=== PATIENT | male | born 2000 | race Caucasian/White ===

== ENCOUNTER 2022-06-21 16:25 | Emergency (ER) | payer OTHER, SELFPAY ==
--- NOTE | ~2022-06-21 | US_ITS ---
EXAMINATION: US SCROTUM CLINICAL INFORMATION: Right-sided testicular pain. COMPARISON: None. TECHNIQUE: A sonogram of the scrotum was performed assessing rangel-scale appearance and color Doppler flow. Spectral Doppler analysis of the arterial and venous flow were performed in the testes bilaterally. FINDINGS: RIGHT: Right testicle measures 4.7 x 2.2 x 2.9 cm, volume 16 mL. No focal testicular parenchymal lesions are visualized. Spectral Doppler analysis of the arterial and venous flow is normal in the right testis. Right epididymal head is normal in size. No right hydrocele is seen. Small varicocele. Right epididymal Doppler flow is normal. LEFT: Left testicle measures 4.8 x 2 x 2.3 cm, volume 12 mL. No focal testicular parenchymal lesions are visualized. Spectral Doppler analysis of the arterial and venous flow is normal in the left testis. Left epididymal head is normal in size. No left hydrocele is seen. Small varicocele. Left epididymal Doppler flow is normal. US/US scrotum doppler IMPRESSION: 1. Small bilateral varicoceles. 2. No evidence of testicular torsion at the moment of this examination. 3. No intratesticular mass.
--- NOTE | ~2022-06-21 | CT_ITS ---
EXAMINATION: CT ABDOMEN AND PELVIS WITHOUT CONTRAST CLINICAL INFORMATION: Right inguinal tenderness COMPARISON: None TECHNIQUE: Multidetector volumetric imaging was performed from the superior aspect of the liver through the pubic symphysis. Sagittal and coronal reformatted images were obtained on the technologist's workstation. This CT examination was performed using dose optimization techniques as appropriate, variously including the following: *Automated exposure control *Adjustment of mA and/or kV according to patient size (this includes techniques or standardized protocols for targeted exams where dose is matched to indication/reason for exam; i.e. extremities or head) *Use of iterative reconstruction technique DLP: 558 mGy-cm FINDINGS: LUNG BASES: The visualized lung bases are unremarkable. LIVER, GALLBLADDER, AND BILIARY TREE: The liver is enlarged measuring 19.5 cm in cephalocaudad dimension with normal attenuation. No focal hepatic lesion or biliary ductal dilatation is present. The gallbladder is unremarkable with no evidence of radiopaque gallstones, gallbladder wall thickening, or obvious pericholecystic inflammatory changes. PANCREAS: Unremarkable. SPLEEN: Spleen is enlarged measuring 13.8 cm in greatest dimension ADRENAL GLANDS: Unremarkable. KIDNEYS AND URETERS: The kidneys are normal in size, shape, and attenuation. No hydronephrosis, hydroureter, or calculi seen. No perinephric stranding. BLADDER: Unremarkable. GASTROINTESTINAL TRACT: The small and large bowel are unremarkable. The appendix is unremarkable. ABDOMINAL WALL: No significant hernia is appreciated. LYMPH NODES: No retroperitoneal lymphadenopathy. VASCULAR: Unremarkable. PELVIC VISCERA: The prostate and seminal vesicles are unremarkable. OSSEOUS STRUCTURES: Unremarkable. CT/CT abdomen pelvis wo IV con IMPRESSION: 1. A cause for the patient's right inguinal tenderness is not found. 2. Incidental note made of mild hepatosplenomegaly. Fleischner guidelines were followed.
--- NOTE | ~2022-06-21 | US_ITS ---
EXAMINATION: US SCROTUM CLINICAL INFORMATION: Right-sided testicular pain. COMPARISON: None. TECHNIQUE: A sonogram of the scrotum was performed assessing rangel-scale appearance and color Doppler flow. Spectral Doppler analysis of the arterial and venous flow were performed in the testes bilaterally. FINDINGS: RIGHT: Right testicle measures 4.7 x 2.2 x 2.9 cm, volume 16 mL. No focal testicular parenchymal lesions are visualized. Spectral Doppler analysis of the arterial and venous flow is normal in the right testis. Right epididymal head is normal in size. No right hydrocele is seen. Small varicocele. Right epididymal Doppler flow is normal. LEFT: Left testicle measures 4.8 x 2 x 2.3 cm, volume 12 mL. No focal testicular parenchymal lesions are visualized. Spectral Doppler analysis of the arterial and venous flow is normal in the left testis. Left epididymal head is normal in size. No left hydrocele is seen. Small varicocele. Left epididymal Doppler flow is normal. US/US scrotum IMPRESSION: 1. Small bilateral varicoceles. 2. No evidence of testicular torsion at the moment of this examination. 3. No intratesticular mass.
[2022-06-21 16:27] VITALS: BP 104/57; PULSE 65; RESP 18; TEMP 36.7; O2SAT 99; BMI 23.7
--- NOTE | 2022-06-21 16:27 | ED.MALEGU ---
HPI - Male Genitourinary General Chief complaint: Urogenital-Male <CARLOS Yang - Last Filed: 06/21/22 16:32> Stated complaint: pain in groin area <CARLOS Yang - Last Filed: 06/21/22 16:32> Time Seen by Provider: 06/21/22 21:10 <CARLOS Yang - Last Filed: 06/21/22 16:32> Source: patient <Natalie Goddard MD - Last Filed: 06/21/22 22:34> Mode of arrival: ambulatory <Natalie Goddard MD - Last Filed: 06/21/22 22:34> Limitations: no limitations <Natalie Goddard MD - Last Filed: 06/21/22 22:34> History of Present Illness HPI Narrative: Patient comes to the emergency room complaining of right inguinal pain for the last 4 days. Patient states that the pain radiates into the testicle. Patient denies any dysuria, hematuria or penile discharge. No fever chills, no flank pain or abdominal pain. Patient reports that he has been doing some heavy lifting at work <Natalie Goddard MD - Last Filed: 06/21/22 22:34> Related Data Allergies/Adverse reactions: Allergies Allergy/AdvReac Type Severity Reaction Status Date / Time No Known Allergies Allergy Unverified 01/09/20 18:00 <CARLOS Yang - Last Filed: 06/21/22 16:32> Review of Systems Review of Systems: Constitutional : No Weight loss, No Fever, No Chills, No Night Sweats, No Fatigue, No Malaise ENT/Mouth : No Hearing loss, No Ear Pain, No Nasal Congestion, No Sinus Pain, No Hoarseness, No sore throat, No Rhinorrhea, No Swallowing Difficulty Eyes: No Eye Pain, No Swelling, No Redness, No Foreign Body, No Discharge, No Vision Changes Cardiovascular : No Chest Pain, No SOB, No Dyspnea on Exertion, No Orthopnea, No Edema, No Palpitations Respiratory : No Cough, No Sputum, No Wheezing, No Smoke Exposure, No Dyspnea Gastrointestinal : No Nausea, No Vomiting, No Diarrhea, No Constipation, No abdominal Pain, No Hematochezia, No Melena Genitourinary : Complaining of right inguinal pain radiating towards the right testicle,, No Dysuria, No Urinary Frequency, No Hematuria, No Urinary Incontinence, No Urgency, No Flank Pain, No Urinary Flow Changes, No Hesitancy Musculoskeletal : No joint pain, No Myalgias, No Joint Swelling Skin : No Skin Lesions, No rash Neuro : No Weakness, No Numbness, No Paresthesias, No Loss of Consciousness, No Dizziness, No Headache Psych : No Anxiety/Panic, No Depression, No SI/HI/AH/VH, No Social Issues, Heme/Lymph: No Bruising, No Bleeding,No Lymphadenopathy Endocrine : No Polyuria, No Polydipsia, No Temperature Intolerance <Natalie Goddard MD - Last Filed: 06/21/22 22:34> [facility] Social History Social History: Social History Advance Directives: No Advance Directives Information Provided: No <CARLOS Yang - Last Filed: 06/21/22 16:32> Physical Exam Vital Signs: Vital Signs: Last Vital Signs Temp 98.5 F 06/21/22 21:41 Pulse 59 06/21/22 21:41 Resp 20 06/21/22 21:41 BP 104/62 06/21/22 21:41 Pulse Ox 98 06/21/22 21:41 O2 Del Method 06/21/22 21:41 BMI result Body Mass Index 23.7 <CARLOS Yang - Last Filed: 06/21/22 16:32> Vital Signs: Last Vital Signs Temp 98.5 F 06/21/22 21:41 Pulse 59 06/21/22 21:41 Resp 20 06/21/22 21:41 BP 104/62 06/21/22 21:41 Pulse Ox 98 06/21/22 21:41 O2 Del Method 06/21/22 21:41 BMI result Body Mass Index 23.7 <Natalie Goddard MD - Last Filed: 06/21/22 22:34> Const: Other: Appearance: Alert. Oriented X3. No acute distress. Eyes: Pupils equal, round and reactive to light. ENT: Pharynx normal. Neck: Normal inspection. Neck supple. No lymph nodes noted. No crepitus CVS: Normal heart rate and rhythm. Pulses normal. Normal S1 and S2 Respiratory: No respiratory distress. Breath sounds normal. No Wheezing. No rales Abdomen: Soft and nontender. No rigidity. No distention. Skin: Skin warm and dry. Normal skin color. Normal skin turgor. Extremities: No lower extremity edema. No Lacerations. No Rash Neuro: Oriented X 3. No motor deficit. No sensory deficit. Moving all extremities. No slurred speech. CN 2 through 12 grossly intact Psych: calm, cooperative, normal affect <Natalie Goddard MD - Last Filed: 06/21/22 22:34> Course Course Course Narrative: RME--22-year-old male with no significant past medical history presents to the ED complaining of right testicular pain x4 days. Denies injury, trauma/fall, dysuria, hematuria, abd pain, N/V. Does report heavy lifting prior to incident area not examined in triage UA, CTNG & Scrotal US ordered <CARLOS Yang - Last Filed: 06/21/22 16:32> Medical Decision Making Medical Decision Making [facility] Narrative: -patient's urine is negative for UTI, CT angio pending. -ultrasound of the scrotum so shows mild bilateral varicocele. Patient instructed to follow-up with urology, as this condition may cause low sperm production -pelvic CT scan does not show any acute findings -patient likely has pulled inguinal ligament -patient received 1 dose of p.o. ibuprofen. <Natalie Goddard MD - Last Filed: 06/21/22 22:34> Differential Diagnosis Differential Diagnoses: The differential diagnosis associated with the presentation includes (Inguinal hernia, UTI, testicular torsion, epididymitis) <Natalie Goddard MD - Last Filed: 06/21/22 22:34> Lab Data [facility] Lab Attestation statement: I reviewed the patient's lab results. <Natalie Goddard MD - Last Filed: 06/21/22 22:34> Labs: Lab Results 06/21/22 06/21/22 Range/Units 17:52 17:52 Urine Color Yellow Urine Appearance Clear Urine pH 7.0 (5.0-9.0) Ur Specific Baring 1.020 (1.005-1.025) Urine Protein Negative (Neg-Trace) mg/dL Urine Glucose (UA) Negative (Negative) mg/dL Urine Ketones Negative (Negative) mg/dL Urine Blood Negative (Negative) Urine Nitrite Negative (Negative) Ur Leukocyte Esterase Negative (Negative) Chlam trachomat DNA PCR NOT DETECTED (Not Detect.) N.gonorrhoeae DNA (PCR) NOT DETECTED (Not Detect.) <CARLOS Yang - Last Filed: 06/21/22 16:32> Lab Results 06/21/22 06/21/22 Range/Units 17:52 17:52 Urine Color Yellow Urine Appearance Clear Urine pH 7.0 (5.0-9.0) Ur Specific Baring 1.020 (1.005-1.025) Urine Protein Negative (Neg-Trace) mg/dL Urine Glucose (UA) Negative (Negative) mg/dL Urine Ketones Negative (Negative) mg/dL Urine Blood Negative (Negative) Urine Nitrite Negative (Negative) Ur Leukocyte Esterase Negative (Negative) Chlam trachomat DNA PCR NOT DETECTED (Not Detect.) N.gonorrhoeae DNA (PCR) NOT DETECTED (Not Detect.) <Natalie Goddard MD - Last Filed: 06/21/22 22:34> Radiology Impression Discussion of test interpretation with radiology: I have reviewed the radiologist's reading. <Natalie Goddard MD - Last Filed: 06/21/22 22:34> Radiologist Impression: Scrotum ultrasound: RIGHT: Right testicle measures 4.7 x 2.2 x 2.9 cm, volume 16 mL. No focal testicular parenchymal lesions are visualized. Spectral Doppler analysis of the arterial and venous flow is normal in the right testis. Right epididymal head is normal in size. No right hydrocele is seen. Small varicocele. Right epididymal Doppler flow is normal. LEFT: Left testicle measures 4.8 x 2 x 2.3 cm, volume 12 mL. No focal testicular parenchymal lesions are visualized. Spectral Doppler analysis of the arterial and venous flow is normal in the left testis. Left epididymal head is normal in size. No left hydrocele is seen. Small varicocele. Left epididymal Doppler flow is normal. US/US scrotum IMPRESSION: 1.? Small bilateral varicoceles. 2.? No evidence of testicular torsion at the moment of this examination. 3.? No intratesticular mass. ? Abdomen pelvis CT scan: FINDINGS: LUNG BASES: The visualized lung bases are unremarkable.? LIVER, GALLBLADDER, AND BILIARY TREE: The liver is enlarged measuring 19.5 cm in cephalocaudad dimension with normal attenuation. No focal hepatic lesion or biliary ductal dilatation is present. The gallbladder is unremarkable with no evidence of radiopaque gallstones, gallbladder wall thickening, or obvious pericholecystic inflammatory changes.? PANCREAS: Unremarkable.? SPLEEN: Spleen is enlarged measuring 13.8 cm in greatest dimension? ADRENAL GLANDS: Unremarkable.? KIDNEYS AND URETERS: The kidneys are normal in size, shape, and attenuation. No hydronephrosis, hydroureter, or calculi seen. No perinephric stranding. ? BLADDER: Unremarkable.? GASTROINTESTINAL TRACT: The small and large bowel are unremarkable. The appendix is unremarkable.? ABDOMINAL WALL: No significant hernia is appreciated.? LYMPH NODES: No retroperitoneal lymphadenopathy. VASCULAR: Unremarkable. PELVIC VISCERA: The prostate and seminal vesicles are unremarkable.? OSSEOUS STRUCTURES: Unremarkable.? CT/CT abdomen pelvis wo IV con IMPRESSION: 1.? A cause for the patient's right inguinal tenderness is not found. 2.? Incidental note made of mild hepatosplenomegaly. ? Fleischner guidelines were followed. <Natalie Goddard MD - Last Filed: 06/21/22 22:34> Discharge Plan Discharge Clinical Impression: Inguinal pain, Bilateral varicoceles <CARLOS Yang - Last Filed: 06/21/22 16:32> Patient Disposition: Home, Self-Care <CARLOS Yang - Last Filed: 06/21/22 16:32> Instructions: Groin Pain (ED), Varicocele (ED) <CARLOS Yang - Last Filed: 06/21/22 16:32> Additional Instructions: Please follow-up with your primary care physician tomorrow. If you have any worsening or new symptoms, please return to the emergency room or call 911 <CARLOS Yang - Last Filed: 06/21/22 16:32> Referrals: Tyree Jimenez MD [Physician] - 1 week <CARLOS Yang - Last Filed: 06/21/22 16:32>
[2022-06-21 18:03] LABS: Appearance Urine Clear; Color Urine Yellow; Glucose Urine UA Negative (Negative); Leukocyte Esterase Urine Negative (Negative); Nitrite Urine Negative (Negative); Urine Blood Negative (Negative); Urine Ketones Negative (Negative); Urine Protein Negative (Neg-Trace)
[2022-06-21 19:41] LABS: CT PCR NOT DETECTED (Not Detect.); NG PCR NOT DETECTED (Not Detect.)
[2022-06-21 21:41] VITALS: BP 104/62; PULSE 59; RESP 20; TEMP 36.9; O2SAT 98
[2022-06-21] MEDS: Ibuprofen 600 MG TABLET PO (22:57)
== END 2022-06-22 02:06 | disposition home or self-care (01) ==
PROVIDERS: Physician Assistant; Emergency Provider Emergency Medicine
DX: I86.1 Scrotal varices (principal); R10.2 Pelvic and perineal pain; Z79.899 Other long term (current) drug therapy
CPT/HCPCS: 0353U; 74176; 76870; 81003; 93975; 99283; 99284

== ENCOUNTER → 2022-07-13 08:28 | Outpatient (BNVA) | payer OTHER, SELFPAY | PROVIDERS: PCP Pediatrics; Visit Provider Nurse Practitioner Family | DX: R10.30 Lower abdominal pain, unspecified (principal) | CPT/HCPCS: 99202 ==

== ENCOUNTER 2022-12-09 15:39 | Outpatient (AMB) | payer OTHER, SELFPAY ==
[2022-12-09 15:47] VITALS: BP 122/70; PULSE 74; TEMP 36.9; O2SAT 98; BMI 26.1
--- NOTE | 2022-12-09 15:47 | AM.OFFWIN_ITS ---
Intake Vital Signs 12/09/22 15:47 Height 6 ft 1 in Weight 198 lb BMI 26.1 BP 122/70 Blood Pressure Location Lt brachial Position Sitting Pulse 74 Pulse Source Pulse Oximeter Temp 98.5 F Temp Source Temporal Artery Scan Pulse Oximetry (%) 98 Intake Visit Reasons: EP, cough Intake Note: pt is here c/o cough, sneezing, pt requesting note off work for the last 3 days Patient Tobacco Use Status: Never used Tobacco Allergies No Known Allergies Allergy (Verified 12/09/22 15:50) HPI HPI Comments History of Present Illness Details This is a 22-year-old male who presents to the office today for sick visit. Patient complaining of dry cough, congestion/rhinorrhea, sore throat, and fatigue. Patient states the symptoms have been ongoing for 3 days but they have been improving. He presented to the office today requesting a note for work saying that he can return to work tomorrow. Patient currently reports feeling well without chest pain, shortness of breath, abdominal pain, nausea/vomiting/diarrhea, or fever/chills. [facility] Medical History Deep inguinal pain Surgical History No pertinent past surgical history Family History (Updated 09/22/22 @ 08:46 by CRAIG Vale) Mother No problems noted. Father No problems noted. Social History Housing: House Patient Tobacco Use Status: Never used Tobacco service: No Current occupational status: employed Cognitive needs: No Hearing needs: No Vision needs: No Review of Systems Const All systems reviewed & are unremarkable except as noted in HPI and below Reports no additional complaints Eyes Reports no additional complaints ENT Reports no additional complaints Card Reports no additional complaints Resp Reports no additional complaints GI Reports no additional complaints Reports no additional complaints Musc Reports no additional complaints Skin/Breast Reports system reviewed and no additional complaints, except as documented Neuro Reports no additional complaints Psych Reports no additional complaints Endo Reports no additional complaints Byron/Lymph Reports no additional complaints Aller/Immun Reports no additional complaints Physical Exam Vital Signs: Last Vital Signs Temp 98.5 F 12/09/22 15:47 Pulse 74 12/09/22 15:47 BP 122/70 08/18/23 15:47 Pulse Ox 98 12/09/22 15:47 BMI result Body Mass Index 26.1 Const General: cooperative, healthy appearing, no acute distress and well developed Orientation/consciousness: patient oriented x3 HEENT Head: Yes normal to inspection Ears: hearing grossly normal bilaterally General nose exam: Normal external nose present Face and sinus: Yes normal facial exam Mouth: Normal oral and palatal mucosa present Throat: Yes posterior oropharynx abnormal (Erythematous, no exudates.) Eyes General: appearance normal, both eyes and all related structures Pupils: Equal, round and reactive pupils present EOM: EOMs intact bilaterally Resp Effort & Inspection: normal respiratory effort and no respiratory distress Auscultation: clear to auscultation bilaterally Cardio Rate: regular rate Rhythm: regular rhythm Heart sounds: no gallops, no murmurs and no rubs Peripheral pulses: Peripheral pulses 2+ throughout GI Inspection: No distended Palpation (GI): Soft to palpation and nontender Auscultation: normal bowel sounds Skin General skin exam: no rashes or lesions noted Neuro General: patient oriented x3 Cranial nerves: Yes CN's II-XII intact bilaterally and Yes Equal, round and reactive pupils present Gait exam (Neuro): Normal gait present Motor exam (neuro): 5/5 motor strength present throughout Extrem General: Yes normal to inspection, Yes full ROM and Yes no clubbing, cyanosis or edema Psych Appearance: grossly normal Mental Status: mental status grossly normal Assessment & Plan Assessment & Plan (1) Viral URI with cough: Code(s): J06.9 - Acute upper respiratory infection, unspecified Plan: Patient presenting with signs and symptoms most consistent with acute upper respiratory tract infection. Recommended symptomatic management including rest, increased fluids, advil/tylenol for pain/fever, and over the counter throat lozenges/decongestants. COVID/flu/RSV test sent. Otherwise, patient is able to return to work without restrictions tomorrow. His vital signs are stable and his physical exam is benign. Recommended precautions including gloves, washing hands, covering mouth when he coughs or sneezes. Patient advised to follow up here or go to the emergency room for worsening/persistent symptoms. Patient verbalizes understanding and he is agreeable with the plan. Orders: Orders SARS-CoV2/FLU/RSV Today R05.9 - Cough, unspecified Coding Level of Care Code Est Pt Level 3 (06655) Diagnoses Viral URI with cough J06.9
== END 2022-12-09 16:10 | disposition home or self-care (01) ==
PROVIDERS: PCP Nurse Practitioner Family; Visit Provider Physician Assistant Medical
DX: J06.9 Acute upper respiratory infection, unspecified (principal)
CPT/HCPCS: 99213

== ENCOUNTER 2022-12-10 11:22 | Outpatient (REF) | payer OTHER, SELFPAY ==
[2022-12-10 12:10] LABS: Influenza A PCR NEGATIVE (Negative); Influenza B PCR NEGATIVE (Negative); Resp Syncy Virus RNA Qual PCR NEGATIVE (Negative); SARS COV2 PCR INHOUSE NEGATIVE (Negative)
== END 2022-12-10 11:23 | disposition home or self-care (01) ==
LOC: HO.LNP 11:22
PROVIDERS: Visit Provider Physician Assistant Medical
DX: R05.9 Cough, unspecified (principal)
CPT/HCPCS: 0241U

== ENCOUNTER 2023-06-16 14:14 | Outpatient (AMB) | payer OTHER, SELFPAY ==
[2023-06-16 14:24] VITALS: BP 110/64; PULSE 97; O2SAT 99; BMI 29.5
--- NOTE | 2023-06-16 14:24 | A.OFFPC_ITS ---
Vital Signs 06/16/23 14:24 Height 6 ft 1 in Weight 223 lb 8 oz BMI 29.5 BP 110/64 Blood Pressure Location Lt brachial Position Sitting Pulse 97 Pulse Source Pulse Oximeter Pulse Oximetry (%) 99 Oxygen Delivery Method Room Air Intake Visit Reasons: Est Care/Transfer from [facility] Note: Pt is here to est care Allergies No Known Allergies Allergy (Verified 06/16/23 14:34) Medication List - Last Reconciled 06/16/23 by CRAIG Velasco No Known Home Meds Tobacco use date assessed: 06/16/23 Dental Screening Dental Screen Date: 06/16/23 Did you have a dental visit in the last 12 months?: Yes Did you have a dental problem in the last 6 months where you did not have access to dental care?: No Was dental information given to patient?: Patient has dentist HPI HPI Comments History of Present Illness Details Patient is a 23-year-old male here to establish care. He has a past medical history significant for anxiety and ADHD. He was referred to Psychiatry for ADHD evaluation, and was given referral to therapy for anxiety. The patient is arrives today and states that he has not yet made those appointment, but definitely is interested in therapy for his depression, in for evaluation for his ADHD. The patient denies SI/HI Patient has had his influenza booster this year. Will get COVID booster. [facility] Medical History Deep inguinal pain Surgical History No pertinent past surgical history Family History Mother Type 2 diabetes mellitus Father No problems noted. Maternal Grandfather Mental health disorder Social History Housing: House Patient Tobacco Use Status: Never used Tobacco e-Cigarette/Vaping Use: Never Used Second Hand Smoke Exposure: No service: No Current occupational status: employed Cognitive needs: No Hearing needs: No Vision needs: No Questionnaire PHQ-9 Over the last 2 weeks, how often have you been bothered by any of the following problems? 1. Little interest or pleasure in doing things: several days 2. Feeling down, depressed, or hopeless: more than half the days 3. Trouble falling or staying asleep, or sleeping too much: more than half the days 4. Feeling tired or having little energy: more than half the days 5. Poor appetite or overeating: not at all 6. Feeling bad about yourself - or that you are a failure or have let yourself or your family down: more than half the days 7. Trouble concentrating on things, such as reading the newspaper or watching television: more than half the days 8. Moving or speaking so slowly that other people could have noticed. Or the opposite - being so fidgety or restless that you have been moving around a lot more than usual: more than half the days 9. Thoughts that you would be better off or of hurting yourself in some way: not at all Total score: 13 Depression Screening Interpretation: Positive Depression Screening Done: Yes Source: Developed by Drs. David Bartlett, Farida Boston, Enoch Vaz and colleagues, with an educational medhat from [employer]. Thrive Questionnaire Date Thrive assessed: 06/16/23 I am a: Patient What is your living situation today?: I have a steady place to live Within the past 12 months, did the food you bought not last and you didn't have the money to get more?: Never true Within the past 12 months, did you worry whether your food would run out before you got money to buy more?: Never true Do you have trouble paying for medicines?: No Do you have trouble getting transportation to medical appointments?: No Do you have trouble paying your heating and electricity bill?: No Do you have trouble taking care of your child, family member or friend?: No Do you have trouble with day-to-day activities such as bathing, preparing meals, shopping, managing finances, etc.?: No Are you currently unemployed and looking for a job?: Yes Are you interested in more education?: Yes THRIVE Score: 0 AUDIT C Alcohol Use Questionnaire (AUDIT-C) 1. How often do you have a drink containing alcohol?: Monthly or less 2. How many drinks containing alcohol do you have on a typical day when you are drinking?: 1 or 2 3. How often do you have six or more drinks on one occasion?: Never Total Score: 1 DAHIANA-7 AMB Questionnaire DAHIANA-7 Date DAHIANA - 7 assessed: 06/16/23 Feeling nervous, anxious, or on edge: 1 = Several days Not being able to stop or control worryin = Several days Worrying too much about different things: 1 = Several days Trouble relaxin = Not at all Being so restless that it is hard to sit still: 1 = Several days Becoming easily annoyed or irritable: 1 = Several days Feeling afraid as if something awful might happen: 0 = Not at all Total DAHIANA-7 score (0-4 normal; 5-9 mild; 10-14 moderate; 15-21 severe): 5 Source: Developed by Drs. David Bartlett, Farida Boston, Enoch Vaz and colleagues, with an educational medhat from [employer]. DAHIANA-7 Assessment Billing DAHIANA-7 Assessment Tool: DAHIANA-7 Assessment 20206 Review of Systems Const Details: Constitutional : No Weight loss, No Fever, No Chills, No Fatigue, No Malaise Cardiovascular : No Chest Pain, No SOB, No Dyspnea on Exertion, No Orthopnea, No Edema, No Palpitations Respiratory : No Cough, No Sputum, No Wheezing Gastrointestinal : No Nausea, No Vomiting, No Diarrhea, No Constipation, Admits ocassion flank/abdomnial pain, No Hematochezia, No Melena Genitourinary : No Dysuria, No Urinary Frequency, No Hematuria,No scotal pain. Musculoskeletal : No joint pain, No Myalgias, No Joint Swelling Neuro : No Weakness, No Numbness, No Dizziness, No Headache Psych : No Anxiety/Panic, Admits Depression Heme/Lymph: No Bruising, No Bleeding,No Lymphadenopathy All other systems reviewed and are negative Physical exam (Primary Care) Care Plan Goal for BP management: Vital signs reviewed are stable. Tobacco/Smoking Status: Tobacco use Status Tobacco use date assessed 09/22/22 09/22/22 08:36 Patient Tobacco Use Status Never used Tobacco 12/09/22 15:53 Depression Screening Interpretation: Positive Thrive Assessment: Date of Thrive Assessment Date Thrive assessed 09/22/22 09/22/22 08:36 Const Other: Appearance: Alert.? Oriented X3.? No acute distress.? Head: Normocephalic, atraumatic. Neck: Normal inspection.? Neck supple.? CVS: Normal heart rate and rhythm.? Pulses normal.? Respiratory: No respiratory distress.? Breath sounds normal.? Abdomen: Soft and nontender.? Skin: Skin warm and dry.? Normal skin color.? Normal skin turgor.? Back: No midline tenderness, no C-spine tenderness, full range of motion, no CVA tenderness bilaterally Neuro: Oriented X 3.? No motor deficit.? No sensory deficit. CN 2-12 intact Assessment and Plan Assessment & Plan (1) ADHD (attention deficit hyperactivity disorder) evaluation: Comment: Patient is meeting with in office community navigator to establish testing for ADHD, and establishment with a psychiatry provider. Code(s): Z13.39 - Encounter for screening examination for other mental health and beh avioral disorders (2) Depression: Comment: Patient denies SI HI. Patient meeting with community navigator to help establish therapist. Patient has been educated on signs of worsening symptoms when to return to the office or to present to the ED. Code(s): F32.A - Depression, unspecified Qualifiers: Depression Type: other depression Qualified Code(s): F32.89 - Other specified depressive episodes (3) Abdominal pain: Comment: Patient states that he has occasional abdominal pain, but that it can interrupt his sleep. Patient has history of varicocele of the scrotum, he saw Urology 1 year prior was given Mobic with good effect. Will repeat ultrasound of scrotum and abdomen. Will refer to Urology if indicated. Will also give omeprazole due to distension and reflux symptoms in the morning. Code(s): R10.9 - Unspecified abdominal pain Qualifiers: Abdominal location: unspecified location Qualified Code(s): R10.9 - Unspecified abdominal pain Plan: Take your medications as prescribed. If you were prescribed antibiotics today, it is important that you take your medication to their entirety, do not skip any doses, do not finish them early. Follow-up with your primary care provider this week. Return to the emergency department with new or worsening symptoms. Such as fevers, chills, chest pain, shortness of breath, nausea, vomiting, dizziness, headache, vision changes, lethargy In case of emergency call 911 Plan Patient will follow-up in 2-3 months with physical exam Orders: Orders Complete Blood Count Auto Diff 09/22/22 F32.A - Depression, unspecified Comprehensive Met. Panel Today Z91.89 - Other specified personal risk factors, not elsewhere classified Complete Blood Count Auto Diff Today Z13.0 - Encounter for screening for diseases of the blood and blood-forming organs and certain disorders involving the immune mechanism Vitamin D 25-OH (D2 and D3) Today Z13.21 - Encounter for screening for nutritional disorder Lipase Today R10.9 - Unspecified abdominal pain Vitamin B6 Today Z13.21 - Encounter for screening for nutritional disorder Vitamin B12 Today Z13.21 - Encounter for screening for nutritional disorder UA CC w/rflx Micro + Cult Today Z13.89 - Encounter for screening for other disorder TSH reflex Free T4 Today Z13.29 - Encounter for screening for other suspected endocrine disorder Amylase Today R10.9 - Unspecified abdominal pain Medications: New meloxicam 15 mg PO DAILY PRN 30 tabs 0RF pain, moderate omeprazole 20 mg PO DAILY 90 caps 0RF Coding Level of Care Code Est Pt Level 3 (26748) Diagnoses ADHD (attention deficit hyperactivity disorder) evaluation Z13.39 Other depression F32.89 Depression Type: other depression Abdominal pain, unspecified abdominal location R10.9 Abdominal location: unspecified location Additional Codes DAHIANA-7 Assessment Billing - DAHIANA-7 Assessment Tool: DAHIANA-7 Assessment [id number] ([id number]) Time Spent (min) 35
== END 2023-06-16 16:19 | disposition home or self-care (01) ==
PROVIDERS: PCP Nurse Practitioner Family; Visit Provider Nurse Practitioner Primary Care
DX: R10.9 Unspecified abdominal pain (principal); Z13.39 Encounter for screening examination for other mental health and behavioral disorders; F32.89 Other specified depressive episodes
CPT/HCPCS: 96127; 99214

== ENCOUNTER 2023-07-03 14:56 | Outpatient (REF) | payer OTHER, SELFPAY ==
--- NOTE | ~2023-07-03 | US_ITS ---
EXAMINATION: US SCROTUM CLINICAL INFORMATION: Scrotal varices. COMPARISON: Ultrasound scrotum 06/21/2022. TECHNIQUE: A sonogram of the scrotum was performed assessing rangel-scale appearance and color Doppler flow. Spectral Doppler analysis of the arterial and venous flow were performed in the testes bilaterally. FINDINGS: RIGHT: Right testicle measures 4.3 x 2.1 x 3.0 cm, volume 14.2 mL. Focal area of heterogeneity in the periphery of the testicular parenchyma measuring approximately up to 1.5 cm with some cystic changes. Spectral Doppler analysis of the arterial and venous flow is normal in the right testis. Right epididymal head is normal in size. No right hydrocele or varicocele is seen. Right epididymal Doppler flow is normal. LEFT: Left testicle measures 4.7 x 2.2 x 2.9 cm, volume 16.0 mL. No focal testicular parenchymal lesions are visualized. Spectral Doppler analysis of the arterial and venous flow is normal in the left testis. Left epididymal head is normal in size. Small varicocele and hydrocele. Left epididymal Doppler flow is normal. US/US scrotum IMPRESSION: 1. Focal heterogeneity in the periphery of the right testicular parenchyma that could potentially represent tubular ectasia of the rete testis, although demonstrates suggestion of internal vascularity which would be atypical. Recommend short-term follow-up ultrasound or further characterization with scrotal MRI with and without IV contrast. 2. Small left-sided varicocele and hydrocele.
--- NOTE | ~2023-07-03 | US_ITS ---
EXAMINATION: US RETROPERITONEAL LIMITED (RENAL ONLY) CLINICAL INFORMATION: Unspecified abdominal pain. COMPARISON: CT abdomen and pelvis 06/21/2022. TECHNIQUE: Real-time imaging of the kidneys. FINDINGS: RIGHT KIDNEY: 9.7 x 3.6 x 5.0 cm (SAG x AP x TRV). The kidney is normal in size, contour, and echogenicity. Renal cortical thickness is normal. No calculi or focal parenchymal lesions. No hydronephrosis. LEFT KIDNEY: 10.5 x 5.3 x 5.3 cm (SAG x AP x TRV). The kidney is normal in size, contour, and echogenicity. Renal cortical thickness is normal. No calculi or focal parenchymal lesions. No hydronephrosis. US/US renal BI IMPRESSION: No abnormality is seen..
== END 2023-07-03 14:57 | disposition home or self-care (01) ==
LOC: HO.US 14:56
PROVIDERS: PCP Nurse Practitioner Primary Care; Visit Provider Nurse Practitioner Primary Care
DX: R10.9 Unspecified abdominal pain (principal); I86.1 Scrotal varices
CPT/HCPCS: 76775; 76870

== ENCOUNTER 2023-07-13 13:55 | Outpatient (REF) | payer OTHER, SELFPAY ==
[2023-07-13 16:03] LABS: MANUAL DIFF FLAG NO
[2023-07-13 16:16] LABS: Basophils Absolute Auto 0.1 X10*3/uL (0.0-0.2); Basophils Percent Auto 0.9 % (0-2); Eosinophils Absolute Auto 0.4 X10*3/uL (0.0-0.4); Eosinophils Percent Auto 4.9 % (0-4); Hematocrit 44.2 % (42.0-52.0); Hemoglobin 15.2 g/dl (14.0-18.0); Imm Gran Abs Auto 0.03 X10*3/uL (0.00-0.03); Imm Gran Pct Auto 0.4 % (0.0-0.4); Lymphocytes Absolute Auto 2.3 X10*3/uL (1.2-4.9); Mean Corpuscular HGB Conc 34.4 g/dl (31.0-36.0); Mean Corpuscular Hemoglobin 29.2 pg (27.0-33.0); Mean Corpuscular Volume 84.8 fL (80.0-98.0); Mean Platelet Volume 10.1 fL (9.4-12.4); Monocytes Absolute Auto 0.6 X10*3/uL (0.1-1.2); Neutrophils Absolute Auto 4.5 x10*3/uL (2.0-8.3); Neutrophils Percent Auto 57.8 % (45-73); Platelet Count 227 X10*3/uL (160-400); Red Blood Count 5.21 X10*6/uL (4.60-5.80); Red Cell Distribution Width 11.9 % (11.0-16.0); White Blood Count 7.8 X10*3/uL (4.8-10.8)
[2023-07-13 16:29] LABS: Alanine Aminotransferase 23 U/L (0-40); Albumin Level 4.6 g/dL (3.5-5.0); Alkaline Phosphatase 57 U/L (39-117); Amylase 45 U/L (28-100); Anion Gap 14 (12-20); Aspartate Amino Transferase 18 U/L (5-37); Bilirubin Total 0.5 mg/dL (0.0-1.0); Blood Urea Nitrogen 13 mg/dL (9-16); Calcium 9.9 mg/dL (8.4-10.2); Carbon Dioxide 29 mmol/L (22-29); Chloride 104 mmol/L (96-108); Estimated Glomerular Filt Rate > 60; Glucose Random 91 mg/dL (60-115); Lipase 15 U/L (8-78); Potassium 4.6 mmol/L (3.3-5.1); Sodium 142 mmol/L (135-145); Total Protein 7.6 g/dL (6.5-8.0)
[2023-07-13 16:38] LABS: Appearance Urine Clear; Color Urine Yellow; Glucose Urine UA Negative (Negative); Leukocyte Esterase Urine Negative (Negative); Nitrite Urine Negative (Negative); Urine Blood Negative (Negative); Urine Ketones Negative (Negative); Urine Protein Negative (Neg-Trace)
[2023-07-13 16:47] LABS: TSH reflex Free T4 4.03 uIU/mL (0.32-4.0)
[2023-07-13 16:50] LABS: Vitamin B12 595 pg/mL (200-900)
[2023-07-13 17:26] LABS: Free T4 (Free Thyroxine) 0.97 ng/dL (0.71-1.85)
[2023-07-18 13:27] LABS: Vitamin D 25-OH, D2 <4 ng/mL; Vitamin D 25-OH, D3 25 ng/mL; Vitamin D 25-OH, Total 25 ng/mL (30-100)
[2023-07-18 14:54] LABS: Vitamin B6 60.2 ng/mL (2.1-21.7)
== END 2023-07-13 13:56 | disposition home or self-care (01) ==
LOC: HO.HMGCLDS 13:55
PROVIDERS: PCP Nurse Practitioner Primary Care; Visit Provider Nurse Practitioner Primary Care
DX: R10.9 Unspecified abdominal pain (principal); Z13.21 Encounter for screening for nutritional disorder; Z13.89 Encounter for screening for other disorder; Z13.0 Encounter for screening for diseases of the blood and blood-forming organs and certain disorders involving the immune mechanism; Z13.29 Encounter for screening for other suspected endocrine disorder; Z91.89 Other specified personal risk factors, not elsewhere classified
CPT/HCPCS: 36415; 80053; 81003; 82150; 82306; 82607; 83690; 84207; 84439; 84443; 85025

== ENCOUNTER 2023-08-15 13:52 | Outpatient (AMB) | payer OTHER, SELFPAY ==
--- NOTE | 2023-08-15 14:14 | MHC.OFFVIS ---
Intake Visit Reasons: abnormal scrotal imaging, varicocele, hydrocele Intake Note: Patient present for follow up bi varicoceles and hydrocele Urology Medications: none Blood Thinner: none Pbx Teacher Required: No Accompanied by: Self / Same As Patient Allergies No Known Allergies Allergy (Verified 08/15/23 17:34) Medication List - Last Reconciled 08/15/23 by RAY Valdes No Known Home Meds HPI Comments Details: Sunny is a pleasant 23-year-old male patient of Dr. Rivera. He has a past medical history of ADHD, depression, and anxiety. He presents to the office today for hydrocele and varicoceles. Of note, patient was seen approximately 1 year ago at which time recommendations were made for p.r.n. referral regarding scrotal and groin discomfort patient had been experiencing. In discussion with the patient today reports having followed up with his PCP for abdominal pain he had been experiencing at which time further imaging was ordered for further assessment evaluation. He reports PCP had ordered another scrotal ultrasound as he has a history of varicocele in recommendations were made for Urology follow-up. In review of patient's chart scrotal ultrasound results were reviewed with the patient today. Focal heterogeneity in the periphery of the right testicular parenchyma that could potentially represent tubular ectasia of the rete testis, although demonstrates suggestion of internal vascularity which would be atypical. Recommend short-term follow-up ultrasound or further characterization with scrotal MRI with and without IV contrast. Small left-sided varicocele and hydrocele. When asked patient reports scrotal and groin pain he had been experiencing over a year ago since his last office visit here has since subsided after prescription of Mobic. He also reports abdominal pain he had been experiencing that he discussed with his PCP has since subsided. He currently denies any bothersome urinary issues or concerns. He discusses at length feeling that ever since he has stopped his occasional drinking and smoking recreational marijuana daily he feels significantly better. He discusses feeling alcohol and recreational marijuana has caused inflammation in his body which in turn has created symptoms he had been experiencing. When asked he denies urinary urgency, urinary frequency, incontinence, nocturia, hematuria, dysuria, foul smelling urine, changes to urinary stream, flank pain, fever, and or chills. In office urinalysis results reviewed with the patient today. He otherwise offers no other issues or concerns. [facility] Medical History Deep inguinal pain Surgical History No pertinent past surgical history Family History Mother Type 2 diabetes mellitus Father No problems noted. Maternal Grandfather Mental health disorder Social History Housing: House Patient Tobacco Use Status: Never used Tobacco e-Cigarette/Vaping Use: Never Used Second Hand Smoke Exposure: No service: No Current occupational status: employed Cognitive needs: No Hearing needs: No Vision needs: No Review of Systems Const All systems reviewed & are unremarkable except as noted in HPI and below Physical Exam Const General: cooperative, healthy appearing, comfortable, no acute distress, well developed, alert and awake Nutritional Appearance: average body habitus Orientation/consciousness: patient oriented x3 Limitations: no limitations HEENT Head: Yes normal to inspection, Yes normocephalic and Yes atraumatic Ears: hearing grossly normal bilaterally Eyes General: appearance normal, both eyes and all related structures Neck Neck: Yes normal visual inspection and Yes trachea midline Chest Chest palpation & inspection: normal inspection of the chest Resp Effort & Inspection: normal respiratory effort and able to speak in complete sentences Cardio Rate: regular rate GI Inspection: Yes normal to inspection General: Yes no CVA tenderness Male General Exam: Yes normal external exam Penis: normal penis and circumcised Meatus: meatus normal Scrotum: scrotum normal Testes: Testes normal and epididymal tenderness on the left Back/Spine/Pelvis Back: no CVA tenderness Skin General skin exam: no rashes or lesions noted Neuro General: patient oriented x3 Extrem General: Yes normal to inspection Psych Appearance: grossly normal and well kempt Mental Status: mental status grossly normal Speech and movement: Normal speech and movement present and Clear speech present Affect: normal affect Attitude: cooperative Thought process: Normal thought process present Thought content: Normal thought content present Insight: Fair insight present (Psych) Judgement: Fair judgement present (Psych) Results AMB Urinalysis, Automated UA Leukoctes 0 Renee/uL Last Edit by Summer Kerr on 08/15/23 14:28 UA Nitrite Negative Last Edit by Summer Kerr on 08/15/23 14:28 UA Urobilinogen 0.2 mg/dL Last Edit by Summer Kerr on 08/15/23 14:28 UA Protein 0 mg/dL Last Edit by Summer Kerr on 08/15/23 14:28 UA pH 6.0 Last Edit by Summer Kerr on 08/15/23 14:28 UA Blood 0 Arpit/uL Last Edit by Summer Kerr on 08/15/23 14:28 UA Specific [place] 1.020 Last Edit by Summer Kerr on 08/15/23 14:28 UA Ketone Negative Last Edit by Summer Kerr on 08/15/23 14:28 UA Bilirubin 0 mg/dL Last Edit by Summer Kerr on 08/15/23 14:28 UA Glucose 0 mg/dL Last Edit by Summer Kerr on 08/15/23 14:28 Results Reviewed Results Reviewed: Laboratory Last Values Urine pH (Auto) 6.0 08/15/23 14:27 Specific [place] (Auto) 1.020 08/15/23 14:27 Urine Protein (Auto) 0 mg/dL 08/15/23 14:27 Glucose (UA)(Auto) 0 mg/dL 08/15/23 14:27 Urine Ketones (Auto) Negative 08/15/23 14:27 Urine Blood (Auto) 0 Arpit/uL 08/15/23 14:27 Urine Nitrite (Auto) Negative 08/15/23 14:27 Urine Bilirubin (Auto) 0 mg/dL 08/15/23 14:27 Urine Urobilinogen (Auto) 0.2 mg/dL 08/15/23 14:27 Leukocyte Esterase (Auto) 0 Renee/uL 08/15/23 14:27 Date of Service: 07/03/23 EXAMINATION: US SCROTUM FINDINGS: RIGHT: Right testicle measures 4.3 x 2.1 x 3.0 cm, volume 14.2 mL. Focal area of heterogeneity in the periphery of the testicular parenchyma measuring approximately up to 1.5 cm with some cystic changes. Spectral Doppler analysis of the arterial and venous flow is normal in the right testis. Right epididymal head is normal in size. No right hydrocele or varicocele is seen. Right epididymal Doppler flow is normal. LEFT: Left testicle measures 4.7 x 2.2 x 2.9 cm, volume 16.0 mL. No focal testicular parenchymal lesions are visualized. Spectral Doppler analysis of the arterial and venous flow is normal in the left testis. Left epididymal head is normal in size. Small varicocele and hydrocele. Left epididymal Doppler flow is normal. IMPRESSION: 1. Focal heterogeneity in the periphery of the right testicular parenchyma that could potentially represent tubular ectasia of the rete testis, although demonstrates suggestion of internal vascularity which would be atypical. Recommend short-term follow-up ultrasound or further characterization with scrotal MRI with and without IV contrast. 2. Small left-sided varicocele and hydrocele. Assessment & Plan Assessment & Plan (1) Varicocele: Code(s): I86.1 - Scrotal varices Category: Medical (2) Hydrocele: Code(s): N43.3 - Hydrocele, unspecified Category: Medical Plan In office urinalysis results reviewed with the patient today; as noted above. Recent scrotal ultrasound results reviewed with the patient today; as noted above. Patient currently denies any bothersome urinary issues or concerns. Patient denies any testicular water discomfort or pain. Discussed at length potential causes for varicoceles as well as hydroceles. Will continue with surveillance monitoring as recommended. Will obtain scrotal ultrasound in 6 months. Follow-up in 6 months with imaging to be completed prior; or sooner with any issues, concerns and or questions Orders: Orders US scrotum 6 Months N43.3 - Hydrocele, unspecified AMB Urinalysis Automated Today Z13.9 - Encounter for screening, unspecified Patient Instructions: The patient had an opportunity to ask questions regarding the treatment plan. All questions were answered. Physical exam, labs, and imaging were discussed and reviewed in detail. As well as risks, benefits, and discussion of treatment choices. No major barriers to understanding were identified. The patient expressed understanding and agreement with the above treatment plan. The patient was made aware they should contact our office by phone for worsening of their current condition, the appearance of new symptoms, or with any questions or concerns. Compliance is encouraged with any medications and follow up testing that is ordered. It is a privilege to be allowed the opportunity to participate in? your urological care.? Again, if you have any questions or concerns If you have any questions or concerns please do not hesitate to contact me. The office is [phone]. This note is constructed using voice recognition software. While every effort has been made to ensure accuracy theoretical physicist errors may have been included. Yours sincerely, CRAIG Valdes-SOMMER Coding Level of Care Code Est Pt Level 3 (56079) Diagnoses Varicocele I86.1 Hydrocele N43.3
== END 2023-08-15 15:03 | disposition home or self-care (01) ==
PROVIDERS: PCP Nurse Practitioner Primary Care; Visit Provider Nurse Practitioner Family
DX: I86.1 Scrotal varices (principal); N43.3 Hydrocele, unspecified; Z13.9 Encounter for screening, unspecified
CPT/HCPCS: 99213

== ENCOUNTER → 2023-08-15 13:52 | Outpatient (BNVA) | payer OTHER, SELFPAY | PROVIDERS: PCP Nurse Practitioner Primary Care; Visit Provider Nurse Practitioner Family | DX: I86.1 Scrotal varices (principal); N43.3 Hydrocele, unspecified | CPT/HCPCS: 81003; 99212 ==

== ENCOUNTER 2023-09-06 14:05 | Outpatient (AMB) | payer OTHER, SELFPAY ==
--- NOTE | 2023-09-06 14:06 | MHC.PC.OV ---
Vital Signs 09/06/23 14:09 Height 6 ft 1 in Weight 231 lb 8 oz BMI 30.5 BP 118/70 Blood Pressure Location Rt brachial Position Sitting Pulse 79 Pulse Source Pulse Oximeter Pulse Oximetry (%) 98 Intake Visit Reasons: Annual PE Intake Note: pt is here for annual exam Allergies No Known Allergies Allergy (Verified 09/06/23 14:22) Medication List - Last Reconciled 09/06/23 by CRAIG Velasco No Known Home Meds Tobacco use date assessed: 06/16/23 Dental Screening Dental Screen Date: 06/16/23 HPI HPI Comments History of Present Illness Details Patient is a 23-year-old male in for his physical exam. Past medical history significant for ADHD-patient not currently taking medication for this. Waiting for established care with therapist and psychiatrist. Generalized anxiety disorder-patient is waiting to see therapist for this. Hydrocele: Patient has establish care with Urology, has repeat scrotal ultrasound in 6 months. Patient is due for Tdap. Has declined in office today. Will get at local pharmacy when he has more notice due to phobia of injections. [facility] Medical History Deep inguinal pain Surgical History No pertinent past surgical history Family History Mother Type 2 diabetes mellitus Father No problems noted. Maternal Grandfather Mental health disorder Social History Housing: House Patient Tobacco Use Status: Never used Tobacco e-Cigarette/Vaping Use: Never Used Second Hand Smoke Exposure: No service: No Current occupational status: employed Cognitive needs: No Hearing needs: No Vision needs: No Questionnaire Thrive Questionnaire Date Thrive assessed: 06/16/23 DAHIANA-7 AMB Questionnaire DAHIANA-7 Date DAHIANA - 7 assessed: 06/16/23 Source: Developed by Drs. David Bartlett, Farida Boston, Enoch Vaz and colleagues, with an educational medhat from [employer] Review of Systems Const All systems reviewed & are unremarkable except as noted in HPI and below Physical exam (Primary Care) Vital Signs: Last Vital Signs Pulse 79 09/06/23 14:09 BP 118/70 09/06/23 14:09 Pulse Ox 98 09/06/23 14:09 Care Plan Goal for BP management: BP is controlled. BMI result Body Mass Index 30.5 Tobacco/Smoking Status: Tobacco use Status Tobacco use date assessed 06/16/23 09/06/23 14:06 Patient Tobacco Use Status Never used Tobacco 09/06/23 14:06 e-Cigarette/Vaping Use Never Used 09/06/23 14:06 Thrive Assessment: Date of Thrive Assessment Date Thrive assessed 06/16/23 09/06/23 14:06 Const Other: Appearance: Alert.? Oriented X3.? No acute distress.? Head: Normocephalic, atraumatic, Eyes: Pupils equal, round and reactive to light. Sclera white. ? ENT: Pharynx normal.?Cerumen impaction of bilateral ears. Post ear lavage patient still has impacted cerumen bilaterally. Neck: Normal inspection.? Neck supple.?Full ROM. CVS: Normal heart rate and rhythm.? Pulses normal.? Respiratory: No respiratory distress.? Breath sounds normal.? Abdomen: Soft and nontender.? Skin: Skin warm and dry.? Normal skin color.? Normal skin turgor.? Extremities: No lower extremity edema.? Back: No midline tenderness, no C-spine tenderness, full range of motion, no CVA tenderness bilaterally Neuro: Oriented X 3.? No motor deficit.? No sensory deficit. CN 2-12 intact Office Procedures Cerumen Removal From which ear canal was the cerumen removed: bilateral Removal: irrigation Notes: patient tolerated procedure well [id number] Irrigation/Lavage Assessment and Plan Assessment & Plan (1) Encounter for physical examination: Comment: Patient has declined Tdap today. Will order labs Code(s): Z00.00 - Encounter for general adult medical examination without abnormal findings (2) Hydrocele: Comment: Patient has follow-up ultrasound in 6 months being followed by Urology. Code(s): N43.3 - Hydrocele, unspecified Qualifiers: Hydrocele type: unspecified Qualified Code(s): N43.3 - Hydrocele, unspecified (3) Abdominal pain: Comment: Patient has occasional left-sided flank pain. Gets good relief with meloxicam. Patient has been educated that he needs to stretch routinely. Code(s): R10.9 - Unspecified abdominal pain Qualifiers: Abdominal location: unspecified location Qualified Code(s): R10.9 - Unspecified abdominal pain (4) ADHD (attention deficit hyperactivity disorder) evaluation: Comment: Patient is meeting with in office community navigator to establish testing for ADHD, and establishment with a psychiatry provider. Patient is waiting to be contacted by psychiatric office. Code(s): Z13.39 - Encounter for screening examination for other mental health and behavioral disorders (5) Anxiety: Comment: Patient is waiting to establish care with therapist. Met with community worker to establish connection. Code(s): F41.9 - Anxiety disorder, unspecified (6) Depression: Comment: Patient denies SI HI. Patient meeting with community navigator to help establish therapist. Patient has been educated on signs of worsening symptoms when to return to the office or to present to the ED. Code(s): F32.A - Depression, unspecified Qualifiers: Depression Type: other depression Qualified Code(s): F32.89 - Other specified depressive episodes Plan: Follow-up in 2 months (7) Impacted cerumen: Comment: Patient instructed to utilize earwax softening drops. Can follow up in office if ear fullness persists after 2 weeks. Code(s): H61.20 - Impacted cerumen, unspecified ear Qualifiers: Laterality: bilateral Qualified Code(s): H61.23 - Impacted cerumen, bilateral Plan Take your medications as prescribed. If you were prescribed antibiotics today, it is important that you take your medication to their entirety, do not skip any doses, do not finish them early. Return to the emergency department with new or worsening symptoms. Such as fevers, chills, chest pain, shortness of breath, nausea, vomiting, dizziness, headache, vision changes, lethargy In case of emergency call 911 Orders: Orders AMB Cerumen Removal Today H61.23 - Impacted cerumen, bilateral Medications: New meloxicam Do not combine with other NSAIDS. 15 mg PO DAILY 20 tabs 0RF Coding Level of Care Code Est Pt Prev Care 18-39y(96753) Diagnoses Encounter for physical examination Z00.00 Hydrocele, unspecified hydrocele type N43.3 Hydrocele type: unspecified Abdominal pain, unspecified abdominal location R10.9 Abdominal location: unspecified location ADHD (attention deficit hyperactivity disorder) evaluation Z13.39 Anxiety F41.9 Other depression F32.89 Depression Type: other depression Bilateral impacted cerumen H61.23 Laterality: bilateral CPT Codes Office Procedure - CPT: 83640-[id number] Irrigation/Lavage ([id number])
[2023-09-06 14:09] VITALS: BP 118/70; PULSE 79; O2SAT 98; BMI 30.5
== END 2023-09-06 15:28 | disposition home or self-care (01) ==
PROVIDERS: PCP Nurse Practitioner Family; Visit Provider Nurse Practitioner Primary Care
DX: Z00.00 Encounter for general adult medical examination without abnormal findings (principal); N43.3 Hydrocele, unspecified; R10.9 Unspecified abdominal pain; H61.23 Impacted cerumen, bilateral; Z13.39 Encounter for screening examination for other mental health and behavioral disorders; F41.9 Anxiety disorder, unspecified; F32.89 Other specified depressive episodes
CPT/HCPCS: 69209; 99395

== ENCOUNTER 2023-10-23 14:49 | Outpatient (AMB) | payer OTHER, SELFPAY ==
--- NOTE | 2023-10-23 14:50 | MHC.PC.OV ---
Vital Signs 10/23/23 14:54 Height 6 ft 1 in Weight 246 lb BMI 32.5 BP 112/70 Blood Pressure Location Lt brachial Position Sitting Pulse 80 Pulse Source Pulse Oximeter Pulse Oximetry (%) 98 Oxygen Delivery Method Room Air Intake Visit Reasons: 2M F/U per JL Intake Note: pt is here for his 2 month f/u Allergies No Known Allergies Allergy (Verified 10/23/23 14:51) Medication List - Last Reconciled 10/23/23 by CRAIG Velasco meloxicam 15 mg PO DAILY Tobacco use date assessed: 10/23/23 Dental Screening Dental Screen Date: 06/16/23 HPI HPI Comments History of Present Illness Details Patient is a 23-year-old male in today for follow-up. Patient was found to be vitamin-D deficient 3 months prior was started on vitamin-D 2000 units p.o. daily. He also had elevated B6 but has since stopped taking the vitamin B6 supplement. Will redraw those labs. Patient reports that his left flank pain has mostly resolved, gets good relief with the use of meloxicam p.r.n.. States he only uses the medication a couple times per month. Patient does offer complain red itching patch on his right foot above the size of a quarter. States this developed after he was working began working out again. Is not utilize any creams or medication for relief. Denies pain or numbness. Patient also reports a since he began working out he notices a clicking sound in his shoulders developed some discomfort. Will order x-ray. Denies any trauma to the area, denies any tingling or numbness [facility] Medical History (Updated 10/23/23 @ 16:34 by CRAIG Velasco) Deep inguinal pain Surgical History No pertinent past surgical history Family History Mother Type 2 diabetes mellitus Father No problems noted. Maternal Grandfather Mental health disorder Social History Housing: House Patient Tobacco Use Status: Never used Tobacco e-Cigarette/Vaping Use: Never Used Second Hand Smoke Exposure: No service: No Current occupational status: employed Cognitive needs: No Hearing needs: No Vision needs: No Questionnaire PHQ-9 Over the last 2 weeks, how often have you been bothered by any of the following problems? 1. Little interest or pleasure in doing things: several days 2. Feeling down, depressed, or hopeless: several days 3. Trouble falling or staying asleep, or sleeping too much: several days 4. Feeling tired or having little energy: more than half the days 5. Poor appetite or overeating: not at all 6. Feeling bad about yourself - or that you are a failure or have let yourself or your family down: more than half the days 7. Trouble concentrating on things, such as reading the newspaper or watching television: nearly every day 8. Moving or speaking so slowly that other people could have noticed. Or the opposite - being so fidgety or restless that you have been moving around a lot more than usual: more than half the days 9. Thoughts that you would be better off or of hurting yourself in some way: not at all Total score: 12 Depression Screening Interpretation: Positive (Patient has referral out for therapy.) Depression Screening Done: Yes 92420 - PHQ-9 Billing: Yes Source: Developed by Drs. David Bartlett, Farida Boston, Enoch Vaz and colleagues, with an educational medhat from [employer]. Thrive Questionnaire Date Thrive assessed: 06/16/23 AUDIT C Alcohol Use Questionnaire (AUDIT-C) 1. How often do you have a drink containing alcohol?: Monthly or less 2. How many drinks containing alcohol do you have on a typical day when you are drinking?: 1 or 2 3. How often do you have six or more drinks on one occasion?: Never Total Score: 1 DAHIANA-7 AMB Questionnaire DAHIANA-7 Date DAHIANA - 7 assessed: 10/23/23 Feeling nervous, anxious, or on edge: 2 = More than half the days Not being able to stop or control worryin = Nearly every day Worrying too much about different things: 3 = Nearly every day Trouble relaxin = More than half the days Being so restless that it is hard to sit still: 2 = More than half the days Becoming easily annoyed or irritable: 2 = More than half the days Feeling afraid as if something awful might happen: 1 = Several days Total DAHIANA-7 score (0-4 normal; 5-9 mild; 10-14 moderate; 15-21 severe): 15 Source: Developed by Drs. David Bartlett, Farida Boston, Enoch Vaz and colleagues, with an educational medhat from [employer]. DAHIANA-7 Assessment Billing DAHIANA-7 Assessment Tool: DAHIANA-7 Assessment 08298 (Patient has referral out for therapist.) Review of Systems Const All systems reviewed & are unremarkable except as noted in HPI and below Physical exam (Primary Care) Vital Signs: Last Vital Signs Pulse 80 10/23/23 14:54 BP 112/70 10/23/23 14:54 Pulse Ox 98 10/23/23 14:54 Oxygen Delivery Method Room Air 10/23/23 14:54 BMI result Body Mass Index 32.5 Tobacco/Smoking Status: Tobacco use Status Tobacco use date assessed 10/23/23 10/23/23 14:59 Patient Tobacco Use Status Never used Tobacco 10/23/23 14:51 e-Cigarette/Vaping Use Never Used 10/23/23 14:51 PHQ-9: PHQ-9 Score PHQ-9: Total score 12 10/23/23 14:59 Depression Screening Interpretation: Positive (Patient has referral out for therapy.) Thrive Assessment: Date of Thrive Assessment Date Thrive assessed 06/16/23 10/23/23 14:51 Const Other: Appearance: Alert.? Oriented X3.? No acute distress.? Head: Normocephalic, atraumatic. Neck: Normal inspection.? Neck supple.? CVS: Normal heart rate and rhythm.? Pulses normal.? Respiratory: No respiratory distress.? Breath sounds normal.? Skin: Dime sized scaling patch on dorsal aspect of left foot. Extremities: +Crepitus of left shoulder to abduction. Neuro: Oriented X 3.? Assessment and Plan Assessment & Plan (1) Left shoulder pain: Comment: Will obtain left shoulder x-ray. Will refer to physical therapy. Code(s): M25.512 - Pain in left shoulder Qualifiers: Chronicity: acute Qualified Code(s): M25.512 - Pain in left shoulder (2) Acute eczema: Comment: Will order triamcinolone cream. Patient has been educated on the importance of keeping the area dry and clean. Code(s): L30.9 - Dermatitis, unspecified Plan: Will redraw labs. Plan Follow-up in 6 months. Orders: Orders Vitamin B6 Today Z13.21 - Encounter for screening for nutritional disorder UA CC w/rflx Micro + Cult Today Z13.89 - Encounter for screening for other disorder TSH reflex Free T4 Today Z13.29 - Encounter for screening for other suspected endocrine disorder Complete Blood Count Auto Diff Today Z13.0 - Encounter for screening for diseases of the blood and blood-forming organs and certain disorders involving the immune mechanism XR shoulder LT min 2V Today M25.512 - Pain in left shoulder PT Evaluation and Treatment Today M25.512 - Pain in left shoulder Vitamin D 25-OH (D2 and D3) Today Z13.21 - Encounter for screening for nutritional disorder Vitamin B12 Today Z13.21 - Encounter for screening for nutritional disorder Comprehensive Met. Panel Today Z91.89 - Other specified personal risk factors, not elsewhere classified Medications: New triamcinolone acetonide 0.1% 1 appl topical DAILY 30 grams 0RF Refilled meloxicam Do not combine with other NSAIDS. 15 mg PO DAILY 20 tabs 0RF Coding Level of Care Code Est Pt Level 3 (85698) Diagnoses Acute pain of left shoulder M25.512 Chronicity: acute Acute eczema L30.9 Additional Codes DAHIANA-7 Assessment Billing - DAHIANA-7 Assessment Tool: DAHIANA-7 Assessment 66232 ([id number]) Time Spent (min) 27
[2023-10-23 14:54] VITALS: BP 112/70; PULSE 80; O2SAT 98; BMI 32.5
== END 2023-10-23 15:25 | disposition home or self-care (01) ==
PROVIDERS: PCP Nurse Practitioner Primary Care; Visit Provider Nurse Practitioner Primary Care
DX: M25.512 Pain in left shoulder (principal); L30.9 Dermatitis, unspecified
CPT/HCPCS: 99213

== ENCOUNTER 2024-01-03 14:00 | Outpatient (RCR) | payer OTHER, SELFPAY ==
--- NOTE | 2023-11-22 14:58 | MHC.PT.EP ---
[facility] [place] Office [place] Office [place] Office [address] [phone] F: [phone] F: [phone] F: [phone] F: [phone] Physical Therapy Plan of Care Date of Evaluation: 11/22/23 Date of Surgery: Diagnosis: This is a 23 yo male presenting to skilled PT with a script for pain in the L shoulder. Assessment: This is a 23 yo male presenting to skilled PT with a script for pain in the L shoulder. Patient reporting L shoulder symptoms now for about 14 years. He states that he gets some painful popping in the L shoulder and has tightness in his pec. Pain increases with OH motions, laying on his L side and bench. Pain improves with minor rest. At eval, he has a hard time describing what/where his pain is, when he gets is and what it feels like. He reports he has no goals for PT. Assessment reveals pain that ranges from up to a 6/10 at the worst. Patient demos decreased L shoulder and cervical ROM, strength of B shoulder's, TTP at GHJ joint line, UT and impaired posture with forward head and rounded shoulders. Based on functional limitations, impaired QOL and pain tolerance patient is a good candidate for skilled PT 2x/wk for 4wks. Frequency and Duration: The patient will be seen 2x/wk for 4wks Short Term Goals: (In 2 weeks) Demo I with HEP Improve shoulder AROM by at least 10 degs Demo proper scapular recruitment with appropriate shoulder strengthening exercises Military Administrative Technician Goals: (in 4 wks) Improve shoulder nonpainful AROM to almost near equal B Demo at least 1 grade improvement in MMT for shoulder Improve SPADI by at least 10 points Improve overall functional QOL by at least 50% Treatment Plan: Modalities to reduce pain, spasms and effusion. Manual therapy to restore motion and function. Therapeutic exercise to improve strength and flexibility. Neuromuscular re-education for posture and balance. Therapeutic activities to return to functional activities of daily living. Electronically signed by: Maria Isabel Tomlinson PT Please sign and return to therapist. Thank you for your referral.
--- NOTE | 2024-02-02 07:37 | MHC.PT.DC ---
[facility] [place] Office [place] Office [place] Office [address] Patsy Newton [address] [phone] F: [phone] F: [phone] F: [phone] F: [phone] Physical Therapy Discharge Report Diagnosis: This is a 23 yo male presenting to skilled PT with a script for pain in the L shoulder. Date of Surgery: Date of Evaluation: 11/22/23 Date of Discharge: 02/02/24 Treatments to Date: 4 Cancellations to Date: 0 No Shows to Date: 0 Discharge Status: Achieved Goals Improved Function Independent with HEP Patient Elected to Stop Discharge Summary: Patient has come to 4 sessions of PT. He feels like he can continue on his own at this time. Patient instructed on an appropriate HEP and educated on muscle groups he needs to continue to focus on. He demos normal ROM and good strength. He is I at the gym, has met his PT goals and is appropriate for DC at this time. Electronically signed by: Maria Isabel Tomlinson, PT Please sign and return to therapist. Thank you for your referral.
== END 2024-02-02 07:38 | disposition home or self-care (01) ==
LOC: HO.PTCHIC 14:00
PROVIDERS: PCP Nurse Practitioner Primary Care; Visit Provider Nurse Practitioner Primary Care
DX: M25.512 Pain in left shoulder (principal)
CPT/HCPCS: 97110; 97162

== ENCOUNTER → 2024-05-28 09:46 | Outpatient (BNVA) | payer OTHER, SELFPAY | PROVIDERS: PCP Nurse Practitioner Primary Care; Visit Provider Internal Medicine ==

== ENCOUNTER 2025-02-03 12:42 | Emergency (ER) | payer OTHER, SELFPAY ==
--- NOTE | ~2025-02-03 | XR_ITS ---
CLINICAL HISTORY: pain, injury 3 view right ankle Comparison: None provided Findings: No acute displaced fracture. No dislocation. Soft tissue edema is present. There is a small bone island within the calcaneus. No significant arthritic change or erosions. Possible ankle effusion. No radiopaque foreign body. IMPRESSION: 1. Possible ankle effusion. 2. No acute displaced fracture. This document has been electronically signed by: Sabi Crowe MD on 02/03/2025 13:20:36
--- NOTE | ~2025-02-03 | XR_ITS ---
CLINICAL HISTORY: pain, injury 3 view right foot Comparison: None provided Findings: Bones intact. No dislocations. No significant loss of joint space, osteophytes, or erosions. No ankle effusion. No radiopaque foreign body. IMPRESSION: 1. No acute findings. This document has been electronically signed by: Sabi Crowe MD on 02/03/2025 13:22:22
[2025-02-03 12:52] VITALS: BP 121/62; PULSE 63; RESP 20; TEMP 36.3; O2SAT 98; BMI 27.6
--- NOTE | 2025-02-03 12:53 | ED_ITS ---
HPI - General Adult General Chief complaint: Extremity Injury, Lower Stated complaint: ankle inj? swelling Time Seen by Provider: 02/03/25 13:44 Source: patient Mode of arrival: wheelchair Limitations: no limitations History of Present Illness ED Provider: Lexi Camara PA-C HPI narrative: Patient is a 24 year old assigned male at with a history of ADHD, anxiety, depression, and eczema presenting to the emergency department today with right ankle pain / swelling. Patient states that he was skateboarding on 01/23/2025 and ever since he has had right ankle pain / swelling. Patient states that he didn't remember actually injuring it that day but he has had pain ever since. Patient denies any other complaints at this time. Related Data Previous Rx's ?Medication ?Instructions ?Recorded triamcinolone acetonide 0.1 % 1 appl topical DAILY #30 grams 10/23/23 topical cream meloxicam 15 mg tablet 15 mg PO DAILY #20 tabs 05/17 Allergies Allergy/AdvReac Type Severity Reaction Status Date / Time No Known Allergies Allergy Verified 02/03/25 12:54 Review of Systems Constitutional: Constitutional: Reports as per HPI Eyes: Eyes: Reports as per HPI ENT: Reports as per HPI Cardiovascular: Cardiovascular: Reports as per HPI Respiratory: Respiratory: Reports as per HPI Gastrointestinal: Gastrointestinal: Reports as per HPI Genitourinary: Genitourinary: Reports as per HPI Musculoskeletal: Musculoskeletal: Reports as per HPI Integumentary/Breasts: Skin/Breast: Reports as per HPI Neurologic: Reports as per HPI Psychiatric: Psychiatric: Reports as per HPI Endocrine: Endocrine: Reports as per HPI Hematologic/Lymphatic: Hematologic/Lymphatic: Reports as per HPI Allergic/Immunologic: Allergic/Immunologic: Reports as per HPI PMF Past Medical History Attestation statement: The following information was validated with the patient. Source: old records reviewed and nursing notes reviewed Medical History Deep inguinal pain Surgical History No pertinent past surgical history Family History Family History Mother Type 2 diabetes mellitus Father No problems noted. Maternal Grandfather Mental health disorder Social History Social History Housing: House Patient Tobacco Use Status: Never used Tobacco e-Cigarette/Vaping Use: Never Used Second Hand Smoke Exposure: No Advance Directives: No Advance Directives Information Provided: Yes Do you have a plan to hurt others: No Plan service: No Current occupational status: employed Cognitive needs: No Hearing needs: No Vision needs: No Physical Exam ED Vital Signs: Vital Signs - 24 hr 02/03/25 12:52 Temperature 97.3 F Pulse Rate 63 Respiratory Rate 20 Blood Pressure 121/62 Pulse Oximetry 98 Oxygen Delivery Method Room Air BMI result Body Mass Index 27.6 Const General: cooperative, no acute distress, alert and awake Nutritional Appearance: well nourished Orientation/consciousness: patient oriented x3 HENMT Head: Yes normal to inspection and Yes atraumatic Ears: hearing grossly normal bilaterally and external ears normal General nose exam: Normal external nose present, no nasal discharge noted and no epistaxis Face and sinus: Yes normal facial exam, No abrasion and No laceration Mouth: Normal oral and palatal mucosa present, no drooling and no muffled voice Eyes General: appearance normal, both eyes and all related structures Periorbital: periorbital findings normal Eyelids: Yes eyelids normal Conjunctivae: conjunctivae normal Pupils: Equal, round and reactive pupils present EOM: EOMs intact bilaterally Neck Neck: Yes normal visual inspection and Yes full ROM Resp Effort & Inspection: normal respiratory effort and able to speak in complete sentences Neuro General: patient oriented x3, moves all extremities and CN's II-XI intact bilaterally Cranial nerves: Yes Equal, round and reactive pupils present Cognition (Neuro): normal cognition Extrem Other: minimal swelling present to the right ankle General: Yes full ROM and Yes capillary refill normal Psych Appearance: grossly normal Mental Status: mental status grossly normal Affect: normal affect Attitude: cooperative Thought process: Normal thought process present Thought content: Normal thought content present Insight: Good insight present (Psych) Course Course Course Narrative: Rapid medical examination performed in triage by Lexi Camara PA-C. Patient is a 24 year old assigned male at presenting to the emergency department with right ankle pain. Patient states that on 01/23/2025 he began to have right ankle pain after skateboarding and continues to have the pain / swelling. Detailed physical exam and review of systems are deferred to the physician assistant primary care. Imaging ordered. Patient placed back in the waiting room pending room availability and results. Procedures Orthopedic Splinting/Casting Right ankle: Side: right Lower Extremity Injury Location: ankle Lower Extremity Immobilizer: Ricardo wrap Other Orthopedic Equipment: crutches Medical Decision Making Medical Decision Making MDM Narrative: Patient is a 24 year old assigned male at with a history of ADHD, anxiety, depression, and eczema presenting to the emergency department today with right ankle pain / swelling. Patient's physical exam was as noted in the physical exam portion of this note. Patient's right foot and ankle x-rays no acute bony process. Patient does have an ankle effusion on XR. I explained my physical exam findings as well as all test results to the patient. I answered all questions asked by the patient. Patient's right ankle is likely sprained. Patient's right ankle placed in an RICARDO wrap without incident. Patient's PMS was intact prior to and after RICARDO wrap placement. Patient was given crutches with crutch instructions. I stressed the importance of the patient taking his medication as directed (either prescribed or as the over the counter packaging recommends). I stressed the importance of the patient following up with his primary care provider. I stressed the importance of the patient returning to the emergency department immediately if his symptoms were to worsen or if he were to develop any dizziness, shortness of breath, difficulty breathing, chest pain, blurry vision, loss of vision, nausea, vomiting, abdominal pain, fever, chills, back pain, or any other complaints. Patient verbalized agreement and understanding with this treatment plan and di suraj. Differential Diagnosis Differential Diagnoses: The differential diagnosis associated with the presentation includes Right ankle sprain Right ankle strain Right ankle joint effusion Right foot pain Right foot strain Admission/Observation Consideration of admission/observation: Escalation of care including admission/observation considered Patient would have been admitted to the hospital had his work up had any findings where hospital admission was appropriate and his clinical presentation warranted hospital admission. Independent Interpretation I performed an independent interpretation of an: Plain X-Ray Interpretation: My interpretation is in agreement with the radiologist's impression of these imaging studies. Reason for Exam: pain, injury CLINICAL HISTORY: pain, injury 3 view right foot Comparison: None provided Findings: Bones intact. No dislocations. No significant loss of joint space, osteophytes, or erosions. No ankle effusion. No radiopaque foreign body. IMPRESSION: 1. No acute findings. This document has been electronically signed by: Sabi Crowe MD on 02/03/2025 13:22:22 Dictated By: Sabi Crowe MD Signed By: Electronically signed by Sabi Crowe MD 02/03/25 1323 Reason for Exam: pain, injury CLINICAL HISTORY: pain, injury 3 view right ankle Comparison: None provided Findings: No acute displaced fracture. No dislocation. Soft tissue edema is present. There is a small bone island within the calcaneus. No significant arthritic change or erosions. Possible ankle effusion. No radiopaque foreign body. IMPRESSION: 1. Possible ankle effusion. 2. No acute displaced fracture. This document has been electronically signed by: Sabi Crowe MD on 02/03/2025 13:20:36 Dictated By: Sabi Crowe MD Signed By: Electronically signed by Sabi Crowe MD 02/03/25 9846 Radiology Impression Discussion of test interpretation with radiology: I have reviewed the radiologist's reading. Discharge Plan Discharge Clinical Impression: Ankle sprain, Ankle effusion Patient Disposition: Home, Self-Care Instructions: Ankle Sprain (DC), Swollen Joint (ED) Additional Instructions: Your right ankle and foot x-rays showed no acute bony process but did show soft tissue swelling / fluid in your ankle joint secondary to a probable sprain. An RICARDO wrap was applied - you can remove this whenever you choose. It should NEVER be so tight that your right toes have any change in feeling, movement, or color. IF you are prescribed home medications and/or you are taking over the counter medications at home - it is very important you continue to do so as prescribed / directed unless told otherwise. Follow up with a primary care provider. Return to the emergency department immediately if your symptoms worsen or if you develop any numbness, tingling, dizziness, shortness of breath, difficulty breathing, chest pain, blurry vision, loss of vision, nausea, vomiting, abdominal pain, fever, chills, back pain, or any other complaints. If you do not have a primary care provider - call any of the below numbers to establish and follow up with a primary care provider. [facility] Primary Care ([place]) [phone] [place] [address], [address] [facility] Primary Care ([address] [place]) [phone] [place] [address], [address] [facility], [address] [facility] Primary Care ([address] [place]) [phone] [place] [address], [address] [facility], [address] [facility] Primary Care ([place]) [phone] [place] [address] [facility], [address] [facility] Family Medicine [phone] [address] [facility], [address] Please see the information below about our Patient Portal. If you are not yet enrolled in the [facility] Patient Portal, you will receive an enrollment email invitation following your visit to any [facility] setting. You may also self-enroll in the Patient Portal by visiting our website: [email or web address] The following information is required to access the Patient Portal: - Your [facility] Medical Record Number - Your personal home email address (must match what is in your electronic medical record, Registration staff can assist with this) - Name - Date of Capabilities of the Patient Portal: - Message some providers - View upcoming appointments - Access your health summary, medical history, and visit history - View current conditions and allergies - View procedure and lab results - View your medications, including guidelines, side effects, and precautions - Complete pre-appointment questionnaires requested by your provider - Ready summary reports of your office visits and procedures To access the Patient Portal Mobile Juanita, follow these directions: - Search [employer] in the Juanita Store or Google Play Store - Download the Juanita - Search for [facility] - Enter your login/password Prescriptions: No Action meloxicam 15 mg tablet 15 mg PO DAILY Qty: 20 0RF Rx Instructions: Do not combine with other NSAIDS. triamcinolone acetonide 0.1 % cream 1 appl topical DAILY Qty: 30 0RF Stand Alone Forms: Work/School Release Discharge Date/Time: 02/03/25 13:55 Print Language: Kyrgyz
--- OUTSIDE RECORDS SUMMARY | 2025-02-03 13:56 | XMS_ITS | Encounter Summary ---
Author Organization [facility] Address [address] [place] [id number] Phone Care Team Providers Care Physical Sciences Instructor Name Role Phone Provider, Ronaldo CUEVAS Primary Care Provider [phone] Encounter Details Date Type Department Care Team (Late st Contact Info) Description 12/08/2016 Conversion Encounter [facility] [place] [address] [place], [place] [id number] Social History Tobacco Use Types Packs/Day Years Used Date Smoking Tobacco: Never Comments:Never smoker Sex and Gender Information Value Date Recorded Sex Assigned at Male 07/28/2020 10:34 AM EDT Legal Sex Male 4:53 PM EDT Gender Identity They, them, preferre d name Dice Gender queer 06/02/2021 2:41 PM EST Sexual Orientation often feels asexual, pansexua l. 04/30/2019 2:23 PM EST documented as of this encounter Plan of Treatment Not on file documented as of this encounter Visit Diagnoses Not on filedocumented in this encounter Care Teams Physical Sciences Instructor Relationship Specialty Start Date End Date Provider, MD Ronaldo [address] [place] [phone] PCP - General Pediatrics 09/22/21 07/03/22 documented as of this encounter
--- OUTSIDE RECORDS SUMMARY | 2025-02-03 13:56 | XMS_ITS | Encounter Summary ---
Author Organization [facility] Address [address] [place] [phone] Phone Care Team Providers Care Principal Account Clerk Name Role Phone Provider, Ronaldo CUEVAS Primary Care Provider [phone] Encounter Details Date Type Department Care Team (Late st Contact Info) Description 02/07/2013 Documentation [facility] Family Medicine [address] [place], [place] [id number] Family Medicine, Physician [address] [place], [place] [address] Social History Tobacco Use Types Packs/Day Years Used Date Smoking Tobacco: Never Assessed Sex and Gender Information Value Date Recorded [...] on filedocumented in this encounter Care Teams Principal Account Clerk Relationship Specialty Start Date End Date Provider, MD Ronaldo [address] [place] [phone] PCP - General Pediatrics 09/22/21 07/03/22 documented as of this encounter
--- OUTSIDE RECORDS SUMMARY | 2025-02-03 13:56 | XMS_ITS | Clinical Summary ---
Author Organization [facility] Address [address] [place] [phone] Phone Care Team Providers Care Bag Machine Operator Name Role Phone Unavailable Primary Care Provider Unavailabl e Allergies Active Allergy Reactions Criticality Noted Date Comments Environmental 07/14/2021 Seasonal Medications No known medications Active Problems Problem Noted Date Diagnosed Date Mood disorder 06/02/2021 Overview (06/03/2021): 06/15 Has been feeling depressed for the past year maybe longer. No SI Abnormal DAHIANA and depression screen Referred to and to follow up with me in 4-6 weeks Assessment & Plan (06/03/2021 10:00 AM EST): 06/15 Has been feeling depressed for the past year maybe longer. Positive mood screens today PHQ9 Screen(s) 06/02/2021 10/20/2020 07/28/2020 Score 12 11 12 Score (Manual) - - - Generalized Anxiety Disorder (GAD7) 06/02/2021 10/20/2020 07/28/2020 DAHIANA 7 Score 12 8 9 5-9 mild anxiety; 10-14 moderate anxiety; >15 severe anxiety Pt expresses increasing depression. No SI or plan. Has good friends. Working manager ship but feeling stuck. Referred to our behavioral team Discussed follow up with me in 4-6 weeks Bilateral impacted cerumen 07/28/2020 Overview (07/28/2020): Wax in both ears Assessment & Plan (06/02/2021 2:32 PM EST): bilat dried wax Assessment & Plan (10/20/2020 12:04 PM EDT): Ear wash attempted. Still with some remaining wax. Advised use of debrox Assessment & Plan (07/28/2020 12:52 PM EDT): Began to discuss and then got side tracked by discussion re mood and so did not do ear wash. Anxiety and depression 11/19/2019 Assessment & Plan (07/20/2021 12:48 PM EDT): Has been feeling down. No SI or plans Is in therapy with Kerri and liking it Here to follow up 2nd to abnormal mood screens at Discussed possibly considering medication but Santos is not interested at this time. They are hopeful about finding a new job. Will continue in therapy. Follow up as needed. Assessment & Plan (10/20/2020 1:45 PM EDT): Feels that he is more anxious this year - covid, trying to figure out what's next in his life etc.. Not currently interested in therapy. Is not interested in medication for mood Has a number of good friends and feels supported by them Discussed using our Behavioral health for coaching when/if he wants. Generalized Anxiety Disorder (GAD7) 10/20/2020 07/28/2020 DAHIANA 7 Score 8 9 Some recent data might be hidden 5-9 mild anxiety; 10-14 moderate anxiety; >15 severe anxiety Assessment & Plan (07/28/2020 12:51 PM EDT): Has abnormal PHQ 9 screen today. And abnormal DAHIANA. Referred to our behavioral health. To follow up with me in 1-2 months re mood, and to further discuss medication. Assessment & Plan (11/19/2019 1:06 PM EDT): Pt brought this concern up at the end of our visit but a full evaluation did not happen today 2nd to time contraints. Behavioral health referral done. Feels like his brain is having trouble keeping up with his thoughts and actions happening around him. When he feels he is not keeping up he feels more anxious. Has had a few anxiety attacks at works that have been on breaks Encouraged to work with behavioral health to learn some self care techniques. ADHD, predominantly inattentive type 02/04/2015 Overview (06/03/2021): Was doing well on concerta 54 mg in the am. Takes methylphenidate 10 mg in the mid afternoon. 04/2019 Stopped taking medication Assessment & Plan (10/20/2020 1:48 PM EDT): Says he stopped taking medication mid Apr 2019 But finds he is not has focused as he would like to be and wants to start taking his medication again Refill for Concerta 54 mg done. Follow up in 3-4 months, sooner prn Assessment & Plan (11/19/2019 11:36 AM EDT): Has been working 40 hrs per week at [employer] from afternoon into the early hours of the morning Is taking medication daily - long acting if shift earlier and short acting if shift starts later. Not getting exercise Sleeping okay Assessment & Plan (04/30/2019 4:31 PM EST): Med continues to help with focus. Still figidity and some mild intermittent anxiety. Not interested in medication. Will continue Concerta 54mg in the morning occas takes methylphenidate 10 mg in the afternoon Follow up in 4 months Assessment & Plan (01/01/2019 3:45 PM EDT): Doing well on concerta 54 mg in the am. Takes methylphenidate 10 mg in the mid afternoon. Just started in College and is liking it. No concerns about medication. Is feeling anxious about the flu vaccine. Continue current dose of Concerta - 54 mg in the am and 10 mg prn in the afternoon Follow up at already scheduled PE in early Apr 2019. Assessment & Plan (08/23/2018 2:43 PM EDT): Pt is doing well on Concerta 54mg in the morning. He sometimes but not often will take 10 mg in the morning as well. Is about to graduate this year from high school and will be going to [employer] in [employer] Confidential section reviewed Assessment & Plan (04/20/2018 9:24 AM EST): You take both methylphenidateCR 54 with the methyphenidate 10 mg in the morning. You are a senior and planning to go to [employer]. You have a 504 plan Assessment & Plan (07/21/2017 4:00 PM EDT): You are doing well on Concerta 54 mg in the morning and rarely take the short acting med in the afternoon. I have refilled the concerta 54 mg tabs. Continue taking 1 in the morning. Follow up in December after school starts Assessment & Plan (04/19/2017 3:39 PM EST): You have tried taking the 10 mg shorting acting ritalin in the morning with concerta but find that you really don't need it. Continue Concerta 54 in the morning and ritalin 10 mg in the after as needed. Follow up in 4 months. Assessment & Plan (03/23/2017 2:35 PM EST): You find that the concerta takes awhile to begin working and you really need it for your first class. You occas take the short acting med in the afternoon but not much. Do a trial of taking both the concerta 54 and the methylphenidate 10 mg in the morning to see if that helps. Call for refills when needed. Learning disability 06/16/2010 Overview (04/19/2017): Doing well with 504 plan. Assessment & Plan (11/19/2019 1:07 PM EDT): Graduated from . Completed 1 semester at [employer] Resolved Problems Problem Noted Date Diagnosed Date Resolved Date Mood problem 07/28/2020 07/28/2020 Syncopal episodes 04/19/2017 04/20/2018 Overview (04/19/2017): You report feeling dizzy sometimes when you stand up quickly and you even fainted last week. Assessment & Plan (04/20/2018 9:25 AM EST): No dizziness or fainting since last year. Assessment & Plan (04/19/2017 4:49 PM EST): EKG ordered. Keep a diary of your dizzy episodes. They usually happen when people are mildly dehydrated and over heated and sit up or stand up too fast. Discussed prevention. Immunizations Immunization Administration Dates Next Due DTaP 5 07/12/2004, 2,2000,09/13,2000 H1N1 06/10/2009,04/01/2009 HPV Vaccine 9 Valent 02/04/2015 HPV, Quadrivalent 07/19/2013,06/07/2012 Hep A, ped/adol 02/04/2015,07/19/2013 Hep B, ped/adol 2000,2000,2000 Hib (PRP-T) 08/15/2001, 1,2000,07/14 IPV 07/12/2004, 2,2000,07/14 Influenza, injectable, quadrivalent 02/19/2016 Influenza, injectable, quadr ivalent, preservative free 12/22/2020,03/29/2020,01/01/2019,01/10,03/23/2017 Influenza, injectable, trivalent 01/07/2009,11/2007 Influenza, intranasal, quadrivalent 02/04/2015,1 ,02/14/2013 Influenza, intranasal, trivalent 12/30/2011,01/23,12/21/2009 MMR 07/12/2004,05/16/2001 Meningococcal Conj (Menactra) MCV4P 08/11/2016,0 06/07/2012 Pneumococcal Conjugate 2000,2000, Tdap 06/07/2012 Varicella 06/13/2008,05/16/2001 Family History Medical History Relation Name Comments No Known Problems Brother No Known Problems Father Shamar Diabetes Half-Brother No Known Problems Half-Sister COPD Maternal Grandfather Diabetes Maternal Grandmother Hyperlipidemia Maternal Grandmother Obesity Maternal Grandmother Diabetes Mother Kiah Obesity Mother Kiah Heart attack Paternal Grandmother Relation Name Status Comments Brother Alive Brother: Alive and well, Diabetes mellitus, Eczema Father Shamar Alive Father: Alive a nd well Half-Brother Alive Half brother (P ): Alive and well Half-Sister Alive Half sister (P) : Alive and well Maternal Grandfather Maternal Grandmother Materna l grandmother: Diabetes mellitus, Obesity, Hyperlipidemia Mother Kiah Alive Mother: Obesity Other Family history of Sudden /HI under 55, Family history of *Dental caries, No family history of *Heart Disease, Family history of *CVA/Stroke, Family history of *Sudden /HI under 55 Paternal Grandfather Paternal Grandmother Paterna l grandmother: Myocardial infarction, Social History Tobacco Use Types Packs/Day Years Used Date Smoking Tobacco: Never Smokeless Tobacco: Never Tobacco Cessation:Counseling Given: No Comments:Never smoker Alcohol Use Standard Drinks/Week Comments No 0 (1 standard drink = 0.6 oz pur e alcohol) Hunger/Food Answer Date Recorded In the last 12 months, did y ou or your family ever eat less than you felt you should because there wasn't enough money for food? No 06/02/2021 Stable Housing Answer Date Recorded Are you worried that in the next 2 months you may not have stable housing? No 06/02/2021 Transportation Concerns Answer Date Rec orded In the last 12 months, have you or your family ever had to go without healthcare because you didn't have a way to get there? No 06/02/2021 Hazards in Home Answer Date Recorded Think about the place you li ve. Do you have problems with any of the following? Pests (mice or roaches), mold, no/not working smoke detectors, water leaks, no window guards. No 2021 Financing Utilities Answer Date Recorde d In the last 12 months, has t he electric, gas, oil, or water company threatened to shut off your services in your home? No 06/02/2021 Safety at Home Answer Date Recorded Are you or your family worried about feeling saf e in your home? No 06/02/2021 Outside Support Answer Date Recorded Do you feel that you need mo re support from other people or programs to help you care for yourself or your family? No 06/02/2021 Understanding Health Concerns Answer Da te Recorded Do you need help understandi ng your or your child's healthcare needs (diagnosis, medications, plan, etc.)? No 06/02/2021 Financing Health Concerns Answer Date R ecorded In the last 12 months, was t here a time when your child needed to see a doctor or get medications or supplies but could not because of cost? No 06/02/2021 Missing School or Work Answer Date Nakul rded Did you or your child miss s chool or work because of a health problem that could have been avoided? No 06/02/2021 Sex and Gender Information Value Date Recorded Sex Assigned at Male 07/28/2020 10:34 AM EDT Legal Sex Male 4:53 PM EDT Gender Identity They, them, preferre d name Dice Gender queer 06/02/2021 2:41 PM EST Sexual Orientation often feels asexual, pansexua l. 04/30/2019 2:23 PM EST Last Filed Vital Signs Vital Sign Reading Time Taken Comments Blood Pressure 108/64 07/14/2021 4:52 PM EDT Pulse 60 07/14/2021 4:52 PM EDT Temperature 35.9 C (96.6 F) 07/14/2021 4:52 PM EDT Respiratory Rate - - Oxygen Saturation - - Inhaled Oxygen Concentration - - Weight 101 kg (221 lb 12.8 oz) 07/14/2021 4:52 P M EDT Height 186.7 cm (6' 1.5 ) 07/14/2021 4:52 PM EDT Body Mass Index 28.87 07/14/2021 4:52 PM EDT Plan of Treatment Health Maintenance Due Date Last Done Comments DTaP,Tdap,and Td Vaccines (7 - Td or Tdap) 06/07/2022 06/07/2012, 07/12/2004, 11/05/2001, Additional history exists Influenza Vaccines (#1) 2024 12/23/19, 03/29/2020, 01/01/2019, Additional history exists COVID-19 Vaccine ( season) 2024 Hepatitis B Vaccines Completed 2000, 2000, 2000 Pneumococcal Vaccine Aged Out 2000, 2000, 2000 No longer eligible based on patient's age to complete this topic HIB Vaccines Completed 08/15/2001, 11/22, 2000, Additional history exists IPV Vaccines Completed 07/12/2004, 10/22, 2000, Additional history exists MMR Vaccines Completed 07/12/2004, 05/16/2001 Varicella Vaccines Completed 06/13/2008, 05/16/2001 HPV Vaccines Completed 02/04/2015, 06/23, 06/07/2012 Hepatitis A Vaccines Completed 02/04/2015, 07/20/19 Meningococcal Vaccine Completed 08/11/2016, 013 Men B Vaccine Aged Out No longer elig ible based on patient's age to complete this topic Procedures * Due to [facility] law, this organization might not be sharing sensitive test results. Procedure Name Priority Date/Time Associated Diagnosis Comments CHLAMYDIA AND GONORRHEA, AMPLIFIED Routine 04/30/2019 1:58 PM EST Screening examination for bacterial and spirochetal disease from Last 3 Months or Most Recently Relevant to Health Maintenance Results * Due to [place] law, this organization might not be sharing sensitive test results. * Chlamydia and Gonorrhoea, Amplified (04/30/2019 1:58 PM EST) Chlamydia Trachomatis, DNA Probe NEGATIVE (NEG) [facility] Comment: No Chlamydia Trachomatis RNA detected in this patient's sample (REFERENCE RANGE/NORMAL VALUE: NOT DETECTED) Note: This test uses parlor maid- mediated amplification method to detect rRNA from C. Trachomatis URINE GC AMP PROBE NEGATIVE (NEG) [facility] Comment: No Neisseria Gonorrhoeae RNA detected in this patient's sample (REFERENCE RANGE/NORMAL VALUE: NOT DETECTED) NOTE: This test uses parlor maid-mediated amplification method to detect rRNA from N.Gonorrhoeae. A negative result does not preclude infection. In the case of a negative urine result, testing of an endocervical(female) or urethral (male) specimen is recommended if there is high clinical suspicion of infection. Due to very high sensitivity of Nucleic Acid Amplification Test, false positive results may occur. Therefore, specimen handling is extremely important. In patients in whom the disease is unlikely, additional sample for testing should be considered after an initial positive result. The performance characteristics of this test have not been evaluated in children. The Aptima Combo2 assay is not intended for the evaluation of suspected sexual abuse or for other medico-legal indications. The ordering provider should assess if the patient had consensual sex without risk of sexual abuse. Consult the [facility] if needed. Contact phone number . Therapeutic failure or success cannot be determined with the Aptima Combo2 assay since nucleic acid may persist following appropriate antimicrobial therapy. The Centers for Disease Control and Prevention (CDC) recommends confirmatory retesting using culture or a different nucleic acid amplification test when positive results occur, if indicated. Testing performed or reported by [facility], a Service of [facility], [address], [place] [address] Michele Still MD, Chinchilla Farmer Urine 04/30/2019 1:58 PM EST 04/30/2019 8:37 PM EST us Amanda Aleman MD LAB MICROBIOLOGY - GENERAL O RDERABLES Final Result [facility] from Last 3 Months or Most Recently Relevant to Health Maintenance
--- OUTSIDE RECORDS SUMMARY | 2025-02-03 13:56 | XMS_ITS | Encounter Summary ---
Author Organization [facility] Address [address] [place] [phone] Phone Care Team Providers Care Drill Sharpener Operator Name Role Phone Provider, Ronaldo CUEVAS Primary Care Provider [phone] Reason for Visit * Reason Onset Date Comments Med Refill 10/19/2019 Encounter Details Date Type Department Care Team ([facility] st Contact Info) Description 10/19/2019 Refill [facility] [place] [address] [place] [address] Amanda Aleman MD [address] [place] [address] ADHD, predominantly inattentive type Social History Tobacco Use Types Packs/Day Years Used Date Smoking Tobacco: Never Smokeless Tobacco: Never Comments:Never smoker Alcohol Use Standard Drinks/Week Comments No 0 (1 standard drink = 0.6 oz pur e alcohol) Hunger/Food Answer Date Recorded No 05/12/2018 Stable Housing Answer Date Recorded No 04/25/2019 Transportation Concerns Answer Date Rec orded No 05/12/2018 Hazards in Home Answer Date Recorded No 05/12/2018 Financing Utilities Answer Date Recorde d No 05/12/2018 Safety at Home Answer Date Recorded No 05/12/2018 Outside Support Answer Date Recorded No 05/12/2018 Understanding Health Concerns Answer Da te Recorded No 05/12/2018 Financing Health Concerns Answer Date R ecorded No 05/12/2018 Missing School or Work Answer Date Nakul rded No 05/12/2018 Sex and Gender Information Value Date Recorded Sex Assigned at Male 07/28/2020 10:34 AM EDT Legal Sex Male 4:53 PM EDT Gender Identity They, them, preferre d name Dice Gender queer 06/02/2021 2:41 PM EST Sexual Orientation often feels asexual, pansexua l. 04/30/2019 2:23 PM EST documented as of this encounter Miscellaneous Notes * Telephone Encounter - Kellee Arvizu LPN - 10/23/2019 11:04 AM EDT Left message for patient to call [facility] back. See notes. * Telephone Encounter - Aamnda Aleman MD - 10/23/2019 10:22 AM EDT Please call pt to schedule med follow up. I won't refill the medication until an appt is scheduled.appt should be this month. - can be virtual. Let me know when appt is scheduled * Telephone Encounter - Amanda Aleman MD - 10/22/2019 12:59 PM EDT Please call and have pt schedule follow up - it can be virtually for FELICIANO. I will refill after apptis scheduled. Let me know. * Telephone Encounter - Kellee Arvizu LPN - 10/20/2019 11:17 AM EDT Needs refill on concerta 54 mgs. Last pe 04/2019 Last follow up 01/10 documented in this encounter Plan of Treatment Not on file documented as of this encounter Visit Diagnoses Diagnosis ADHD, predominantly inattentive type Attention deficit disorder without mention of hyperactivity documented in this encounter Care Teams Drill Sharpener Operator Relationship Specialty Start Date End Date Provider, MD Ronaldo [address] [place] [id number] PCP - General Pediatrics 6/1/22 3/12/23 documented as of this encounter
== END 2025-02-03 13:55 | disposition home or self-care (01) ==
LOC: HO.ED 13:54
PROVIDERS: Emergency Provider Emergency Medicine; PCP Nurse Practitioner Primary Care
DX: S93.401A Sprain of unspecified ligament of right ankle, initial encounter (principal); M25.471 Effusion, right ankle; R26.9 Unspecified abnormalities of gait and mobility; R60.0 Localized edema; Z99.3 Dependence on wheelchair
CPT/HCPCS: 73610; 73630; 99281; 99283

== ENCOUNTER → 2025-02-03 12:54 | Outpatient (BNV) | payer OTHER, SELFPAY | PROVIDERS: Emergency Provider Emergency Medicine; PCP Nurse Practitioner Primary Care; Visit Provider Radiology Diagnostic Radiology | DX: S93.401A Sprain of unspecified ligament of right ankle, initial encounter (principal); M79.671 Pain in right foot | CPT/HCPCS: 73610; 73630 ==